=== PATIENT | female | born 2000 | race Caucasian/White ===

== ENCOUNTER 2021-05-26 13:33 | Emergency (ER) | payer OTHER ==
[~2021-05-26 13:33] MED LIST: BACTRIM DS TAB1 EACH PO; BENTYL 20MG TAB20 MG PO; ZOFRAN4 MG PO
[2021-05-26 15:14] LABS: HEMOGLOBIN 12.6 gm/dl (12.3-15.3); RED BLOOD COUNT 4.15 M/UL (4.00-5.10); WHITE BLOOD COUNT 8.1 K/UL (4.5-11.0)
[2021-05-26 15:35] LABS: BUN/CREATININE RATIO 11 (0-10)
[2021-05-26] MEDS ORDERED: PHENERGAN 12.12.5 M1 PO (17:34)
== END 2021-05-26 19:20 | disposition home or self-care (01) ==
LOC: ER1 13:33
PROVIDERS: Physician Assistant Medical
DX: O21.9 Vomiting of pregnancy, unspecified (principal); Z3A.01 Less than 8 weeks gestation of pregnancy
CPT/HCPCS: 80053; 81001; 85025; 96374; 99284; J2550; J7030

== ENCOUNTER 2022-01-27 21:53 | Emergency (ER) | payer OTHER, MEDICAID ==
[~2022-01-27 21:53] MED LIST changes: +PHENERGAN 12.12.5 M1 PO
[2022-01-27] MEDS ORDERED: CYCLOBENZAPRINE10 MG PO (23:54)
[2022-01-27] MEDS ORDERED: IBUPROFEN600 MG PO (23:54)
== END 2022-01-27 23:57 | disposition home or self-care (01) ==
LOC: ER1 21:53
DX: S16.1XXA Strain of muscle, fascia and tendon at neck level, initial encounter (principal); S29.012A Strain of muscle and tendon of back wall of thorax, initial encounter; S40.011A Contusion of right shoulder, initial encounter; S20.211A Contusion of right front wall of thorax, initial encounter; V43.52XA Car driver injured in collision with other type car in traffic accident, initial encounter; Y92.410 Unspecified street and highway as the place of occurrence of the external cause
CPT/HCPCS: 71045; 72125; 72128; 73030; 96374; 99284; J1885